=== PATIENT | female | born 1950 | race Caucasian/White ===

== ENCOUNTER → 2022-11-11 | Outpatient (CLI) | payer BC, MEDICARE | LOC: M RAD 07:40 | PROVIDERS: ATTEND Surgery Vascular Surgery | DX: I83.813 Varicose veins of bilateral lower extremities with pain (principal); T82.9XXA Unspecified complication of cardiac and vascular prosthetic device, implant and graft, initial encounter; I87.2 Venous insufficiency (chronic) (peripheral) ==